=== PATIENT | male | born 1990 | race Caucasian/White ===

== ENCOUNTER 2024-05-22 13:11 | Outpatient (OUT) | payer OTHER, SELFPAY ==
--- NOTE | 2024-05-22 13:20 | US_ITS ---
The [address] [address] Patient Name: SID GUTIERRES MRN: [id number] date: 1990 Sex: M Assigned Patient Location: [place] Current Patient Location: US Accession/Order Number: [id number] Exam Date: 05/22/2024 14:36 Report Date: 05/22/2024 14:39 At the request of: FREDDIE SCHULTZ MD Procedure: US scrotum Scrotal ultrasound HISTORY: Testicular mass lump felt by doctor. COMPARISON: None RIGHT testicle measures 5.4 x 2.4 x 3.5 cm. LEFT testicle measures 5.5 x 2.3 x 3.3 cm.. No testicular mass or microcalcifications identified. Normal color flow of both testicles identified. RIGHT epididymal head measures 9 mm. LEFT epididymal head measures 6 mm. . Small right anechoic hydrocele. Prominent vessels lateral to the left testicle. No scrotal wall abnormality identified. US/US scrotum IMPRESSION: Unremarkable testicles. Small right hydrocele. Left varicocele. Impression dictated by: Ravinder Rosa M.D.05/22/2024 2:39 PM Dictation Location[facility] Electronically authenticated by: [id number] Y Date: 05/22/2024 14:39
== END 2024-05-22 13:12 | disposition home or self-care (01) ==
PROVIDERS: PCP Internal Medicine; Visit Provider Urology
DX: N50.89 Other specified disorders of the male genital organs (principal); N43.3 Hydrocele, unspecified
CPT/HCPCS: 76870